=== PATIENT | female | born 1950 | race Caucasian/White ===

== ENCOUNTER 2016-07-03 11:06 | Inpatient (IN) | payer MEDICARE ==
[2016-07-03 12:21] LABS: BASOPHIL 0.5 % (0-2); EOSINOPHIL 2.2 % (0-7); HCT 36.1 % (37.0-47.0); HGB 10.8 g/dl (12.5-16.0); LYMPHOCYTE 19.1 % (15-48); MCH 26.7 pg (25.0-31.0); MCHC 29.9 g/dL (32.0-36.0); MCV 89.1 fL (78.0-100.0); MPV 9.7 fL (6.0-9.5); PLT 297 K/uL (150-400); RBC 4.05 M/uL (4.20-5.40); RDW 15.9 % (11.5-14.0); WBC 9.3 K/uL (4.0-10.5)
[2016-07-03 12:22] LABS: ALBUMIN 3.8 g/dL (3.4-4.8); BILIRUBIN - TOTAL 0.8 mg/dL (0.1-1.0); CREATININE 1.6 mg/dL (0.5-1.0); NEUTROPHIL 70.2 % (41-80); POTASSIUM 5.2 mmol/L (3.5-5.1); TOTAL PROTEIN 7.8 g/dL (6.4-8.3)
[2016-07-03 12:24] LABS: INR 1.68 (0.9-1.2); PRO-BNP 4453 pg/mL (0-125); PROTHROMBIN TIME 19.3 SECONDS (11.7-14.0); PTT 28.9 SECONDS (23.2-31.4); TROPONIN T < 0.010 ng/mL
[2016-07-03 14:12] LABS: BILIRUBIN NEGATIVE (NEGATIVE); BLOOD 1+ Ery/uL (NEGATIVE); CLARITY CLEAR (CLEAR); COLOR YELLOW (YELLOW); GLUCOSE (U) NORMAL (NORMAL); KETONE (U) NEGATIVE (NEGATIVE); LEUKOCYTES NEGATIVE Leu/uL (NEGATIVE); NITRITE POSITIVE (NEGATIVE); PROTEIN 1+ mg/dL (NEGATIVE); SPECIFIC GRAVITY 1.025 (1.001-1.030); pH 5.5 (5.0-9.0)
[2016-07-04 04:04] LABS: HCT 33.3 % (37.0-47.0); HGB 9.9 g/dl (12.5-16.0); MCH 26.4 pg (25.0-31.0); MCHC 29.7 g/dL (32.0-36.0); MCV 88.8 fL (78.0-100.0); RBC 3.75 M/uL (4.20-5.40); RDW 15.8 % (11.5-14.0); WBC 7.9 K/uL (4.0-10.5)
[2016-07-04 04:27] LABS: ALBUMIN 3.3 g/dL (3.4-4.8); BILIRUBIN - DIRECT 0.3 mg/dL (0.0-0.2); BILIRUBIN - TOTAL 0.8 mg/dL (0.1-1.0); CREATININE 1.4 mg/dL (0.5-1.0); GLOBULIN (CALCULATION) 2.9 g/dL (2.2-4.2); POTASSIUM 4.7 mmol/L (3.5-5.1); TOTAL PROTEIN 6.2 g/dL (6.4-8.3)
--- NOTE | 2016-07-04 14:15 | NUR ---
In to round on patient. Patient states she "wants to go home". She was advised, diagnostic testing was still being completed. She stated she didn't "care, I just want to go home". She was advised that it would be in her best interest [facility] to stay for results of testing and continued treatment. Risk of leaving without recieving full treatment could be life threatening and/or possible re admission. Patient stated "I just want to go home". Dr. Wood, notified of patients desires. Stated he would speak with patient.
--- NOTE | 2016-07-04 16:30 | NUR ---
DR. MCGRAW IN TO ASSESS PT, PT REQUESTING TO GO HOME. DR. MCGRAW STATED O.K. FOR D/C FAR NEPHROLOGY. DR. Wood PAGED & NOTIFIED OF PT'S REQUEST. 1700 DR. Wood AND MYSELF IN TO SPEAK WITH PATIENT. DR. Wood REQUESTED PATIENT STAY UNTIL AM;PT STATED SHE WANTED TO GO HOME. DR. Wood STATED IF ABLE TO GO HOME WITH OXYGEN THEN WOULD D/C HOME TONIGHT. PT STATED SHE HAD USED "[facility]" IN PAST FOR OXYGEN THERAPY. 1710 [facility] CALLED & ASKED IF OXYGEN THERAPY COULD BE SET UP TONIGHT. REPORTED THAT THEY WOULD NEED FACESHEET;ORDER;PROGRESS NOTE & DOCUMENTATION OF NEED FAXED. [employer] FAXED REQUESTED. 1745 [facility] CALLED TO VERIFY OXYGEN WOULD BE DELIVERED TONIGHT. 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 1747 [facility] CALLED & VERIFIED OXYGEN WOULD BE SET UP TONIGHT;STATED SHE WAS TEXTING THE TECH TO DELIVERY PORTABLE OXYGEN AT [facility] FOR TRANSPORT HOME.
--- NOTE | 2016-07-04 17:50 | NUR ---
[facility] D/C'D W/O DIFFICULTY;TOLERATED WELL. IV SITE D/C'D PRESSURE DRESSING APPLIED;TOLERATED WELL.
--- NOTE | 2016-07-04 18:00 | NUR ---
PT ASKED IF SHE HAD VOIDED SINCE REMOVAL OF W[facility] CATHER;PT STATED SHE "DID".
--- NOTE | 2016-07-04 18:17 | NUR ---
DISCHARGE & RX INSTRUCTIONS GIVEN;D/C PENDING [facility] SET UP MECHANIC BRINGING PORTABLE OXYGEN.
--- NOTE | 2016-07-04 18:45 | NUR ---
PT CAME TO DESK;STATED THEY WERE NOT GOING TO WAIT ANY LONGER FOR THE OXYGEN TO BE DELIVERED;REQUESTED THAT [facility] MEET THEM AT HOME. AT THE SAME TIME [facility] CALLED & REQUESTED INFORMATION BE RE FAXED. THEY WERE NOTIFIED OF PATIENT'S REQUEST & STATED THAT WOULD NOT BE A PROBLEM. PT WAS NOTIFIED;THEY LEFT THE FACILITY.
== END 2016-07-04 18:55 | disposition home or self-care (01) | DRG 291 ==
LOC: FER 11:06 → FTCU 14:00
PROVIDERS: Emergency Medicine; ADMIT Internal Medicine
DX: I13.0 Hypertensive heart and chronic kidney disease with heart failure and stage 1 through stage 4 chronic kidney disease, or unspecified chronic kidney disease (principal); I50.33 Acute on chronic diastolic (congestive) heart failure; I27.2 Other secondary pulmonary hypertension; N17.9 Acute kidney failure, unspecified; Z68.45 Body mass index [BMI] 70 or greater, adult; E66.01 Morbid (severe) obesity due to excess calories; N18.3 Chronic kidney disease, stage 3 (moderate); C88.0 Waldenstrom macroglobulinemia; K75.81 Nonalcoholic steatohepatitis (NASH); E11.9 Type 2 diabetes mellitus without complications; I48.2 Chronic atrial fibrillation; E78.5 Hyperlipidemia, unspecified; D50.9 Iron deficiency anemia, unspecified; M19.90 Unspecified osteoarthritis, unspecified site; F32.9 Major depressive disorder, single episode, unspecified; D63.1 Anemia in chronic kidney disease; Z87.891 Personal history of nicotine dependence; Z79.01 Long term (current) use of anticoagulants; Z88.8 Allergy status to other drugs, medicaments and biological substances; Z80.0 Family history of malignant neoplasm of digestive organs; Z82.5 Family history of asthma and other chronic lower respiratory diseases; Z98.84 Bariatric surgery status
CPT/HCPCS: 36415; 36600; 71010; 76770; 80048; 80053; 80076; 81003; 82550; 82553; 82803; 82962; 83880; 84484; 85025; 85610; 85730; 87040; 87076; 87088; 87186; 87804; 87899; 93005; 93970; 94640; 94660; 97163; 97167; 97530; 97530-GP; C9113; J1644; J1940

== ENCOUNTER → 2020-09-24 | Day surgery (SDC) | payer MEDICARE, OTHER ==
[~2020-09-24] VITALS: Ht 162.6 cm; Wt 172.4 kg
[~2020-09-24] MED LIST: ALLEGRA ALLERG180 MG PO; ARANESP150 MCG/0. SC; ASPIRIN EC81 M1 PO; BREO ELLIPTA 11 EACH INH; BUMEX1 MG PO; COUMADIN4 MG PO; COUMADIN7.5 MG PO; DRISDOL50000 UNIT PO; FOLIC ACID1 MG PO; HYDROCODON-ACE1 EAC2 PO; IMDUR 30MG TABL30 MG PO; LASIX40 MG PO; LEXAPRO20 MG PO; LIPITOR40 MG PO; LOVAZA1 GM PO; NEURONTIN300 MG PO; NORVASC 10MG TA10 MG PO; OXYGEN INH; PRILOSEC20 MG PO; TOPROL XL 25MG25 MG PO; VASERETIC 10-21 EACH PO; VENTOLIN HFA IN18 GM INH
[2020-09-24 09:22] LABS: INR 2.25 (0.9-1.2); PROTHROMBIN TIME 23.7 SECONDS (11.4-13.6)
[2020-09-24 09:30] LABS: ALBUMIN 3.5 g/dL (3.4-5.0); BILIRUBIN - TOTAL 0.7 mg/dL (0.2-1.0); CREATININE 1.31 mg/dL (0.51-0.95); GLOBULIN (CALCULATION) 4.3 g/dL; TOTAL PROTEIN 7.8 g/dL (6.4-8.2)
== END | disposition home or self-care (01) ==
LOC: FAS 07:29
PROVIDERS: Surgery
DX: K63.5 Polyp of colon (principal); I13.0 Hypertensive heart and chronic kidney disease with heart failure and stage 1 through stage 4 chronic kidney disease, or unspecified chronic kidney disease; E11.22 Type 2 diabetes mellitus with diabetic chronic kidney disease; N18.30 Chronic kidney disease, stage 3 unspecified; I50.9 Heart failure, unspecified; F41.9 Anxiety disorder, unspecified; M19.90 Unspecified osteoarthritis, unspecified site; J44.9 Chronic obstructive pulmonary disease, unspecified; G89.4 Chronic pain syndrome; I48.91 Unspecified atrial fibrillation; F32.9 Major depressive disorder, single episode, unspecified; K21.9 Gastro-esophageal reflux disease without esophagitis; E78.1 Pure hyperglyceridemia; E03.9 Hypothyroidism, unspecified; E66.01 Morbid (severe) obesity due to excess calories; M81.0 Age-related osteoporosis without current pathological fracture; I27.20 Pulmonary hypertension, unspecified; G47.30 Sleep apnea, unspecified; Z68.44 Body mass index [BMI] 60.0-69.9, adult; Z99.81 Dependence on supplemental oxygen; Z99.3 Dependence on wheelchair; Z98.84 Bariatric surgery status; Z87.891 Personal history of nicotine dependence; Z79.01 Long term (current) use of anticoagulants; Z79.82 Long term (current) use of aspirin; Z79.84 Long term (current) use of oral hypoglycemic drugs; Z79.899 Other long term (current) drug therapy
CPT/HCPCS: 36415; 80053; 85610; J1610; J2250; J2704; J7120; P9017

== ENCOUNTER 2021-08-18 13:18 | Inpatient (IN) | payer MEDICARE, OTHER ==
[~2021-08-18] VITALS: Ht 160 cm; Wt 147.4 kg
[~2021-08-18 13:18] MED LIST changes: +AMARYL2 MG PO; +BUMETANIDE2 MG PO; +DUONEB 2.5-0.5M1 AMP NEB; +SYNTHROID75 MCG PO
[2021-08-18 15:11] LABS: BASOPHIL 0.2 % (0-2); EOSINOPHIL 2.7 % (0-7); LYMPHOCYTE 4.3 % (15-48); MCH 31.7 pg (25.0-31.0); MCHC 30.3 g/dL (32.0-36.0); MCV 104.8 fL (78.0-100.0); MONOCYTE 7.6 % (0-12); MPV 10.5 fL (6.0-9.5); NRBC 0; PLT 117 K/uL (150-400); RBC 3.15 M/uL (4.20-5.40); RDW 15.2 % (11.5-14.0); WBC 5.1 K/uL (4.0-10.5)
[2021-08-18 15:15] LABS: INR 1.07 (0.9-1.2); PROTHROMBIN TIME 13.3 SECONDS (11.8-13.4)
[2021-08-18 15:16] LABS: PTT 28.9 SECONDS (24.4-34.7)
[2021-08-18 15:25] LABS: ALBUMIN 3.2 g/dL (3.4-5.0); BILIRUBIN - TOTAL 0.5 mg/dL (0.2-1.0); BUN/CREAT RATIO (CALC) 34.1 RATIO; CREATININE 1.38 mg/dL (0.51-0.95); GLOBULIN (CALCULATION) 3.6 g/dL; POTASSIUM 4.8 mmol/L (3.5-5.1); TOTAL PROTEIN 6.8 g/dL (6.4-8.2)
[2021-08-18 16:16] LABS: BILIRUBIN NEGATIVE (NEGATIVE); BLOOD NEGATIVE Ery/uL (NEGATIVE); CLARITY CLEAR (CLEAR); COLOR YELLOW (YELLOW); GLUCOSE (U) NORMAL (NORMAL); LEUKOCYTES NEGATIVE Leu/uL (NEGATIVE); NITRITE NEGATIVE (NEGATIVE); PROTEIN NEGATIVE (NEGATIVE); SPECIFIC GRAVITY 1.025 (1.001-1.030); UROBILINOGEN 0.2 mg/dL (0.2-1.0); pH 5.5 (5.0-9.0)
[2021-08-18 16:44] LABS: CORONAVIRUS 2019 SARS-COV-2 NEGATIVE (NEGATIVE); INFLUENZA A NAA NEGATIVE (NEGATIVE)
[2021-08-18 19:05] LABS: BUN/CREAT RATIO (CALC) 33.8 RATIO; CREATININE 1.45 mg/dL (0.51-0.95); POTASSIUM 4.8 mmol/L (3.5-5.1)
[2021-08-18] MEDS ORDERED: SALINE NASAL SP88 M1 (22:16)
[2021-08-18] MEDS ORDERED: MIRALAX 238GM238 GM PO (22:18)
[2021-08-18] MEDS ORDERED: LIDOCAINE 4%50 ML TOP (22:20)
[2021-08-18] MEDS ORDERED: ISOSORBIDE MONO60 MG PO (22:24)
[2021-08-18] MEDS ORDERED: NORVASC5 MG PO (22:25)
[2021-08-18] MEDS ORDERED: COMPAZINE10 MG PO (22:26)
[2021-08-19 04:03] LABS: BASOPHIL 0.3 % (0-2); EOSINOPHIL 2.5 % (0-7); HCT 32.4 % (37.0-47.0); HGB 9.5 g/dl (12.5-16.0); LYMPHOCYTE 6.8 % (15-48); MCH 30.8 pg (25.0-31.0); MCHC 29.3 g/dL (32.0-36.0); MCV 105.2 fL (78.0-100.0); MONOCYTE 9.1 % (0-12); NRBC 0; PLT 100 K/uL (150-400); RBC 3.08 M/uL (4.20-5.40)
[2021-08-19 04:29] LABS: BUN/CREAT RATIO (CALC) 34.1 RATIO; CREATININE 1.32 mg/dL (0.51-0.95); MAGNESIUM 2.1 mg/dL (1.8-2.4); POTASSIUM 4.5 mmol/L (3.5-5.1)
--- NOTE | 2021-08-19 11:22 | NUR ---
MET WITH PT, SPOUSE AND DAUGHTER. PT. DOES NOT WISH TO RETURN TO [facility]. SHE WOULD LIKE TO GO HOME. SHE HAS A HOSPITAL BED, WC, AND 06/28. PT. WAS CURRENT WITH [facility] PRIOR TO ADMISSION TO [facility]. PT. WOULD LIKE TO HAVE [facility] HER HH. PT IS ALSO CURRENT WITH THE [facility] FOR CHEMO. SHE STATES THAT SHE HAS 3 CHEMO TREATMENTS LEFT.
[2021-08-20 04:13] LABS: BUN/CREAT RATIO (CALC) 36.1 RATIO; CREATININE 1.55 mg/dL (0.51-0.95); MAGNESIUM 1.9 mg/dL (1.8-2.4); POTASSIUM 4.8 mmol/L (3.5-5.1)
[2021-08-21 06:52] LABS: BUN/CREAT RATIO (CALC) 39.3 RATIO; CREATININE 1.73 mg/dL (0.51-0.95); MAGNESIUM 1.7 mg/dL (1.8-2.4); POTASSIUM 4.3 mmol/L (3.5-5.1)
[2021-08-21] MEDS ORDERED: BUMETANIDE1 MG PO (10:54)
[2021-08-21] MEDS ORDERED: BUMETANIDE2 MG PO (11:06)
== END 2021-08-21 15:20 | disposition home health service (06) | DRG 291 ==
LOC: FER 13:18 → FMS 18:13 → FTCU 08-19 11:56
PROVIDERS: Emergency Medicine; Internal Medicine Cardiovascular Disease; Nurse Practitioner Acute Care; ADMIT Allergy & Immunology Allergy
DX: I13.0 Hypertensive heart and chronic kidney disease with heart failure and stage 1 through stage 4 chronic kidney disease, or unspecified chronic kidney disease (principal); I50.33 Acute on chronic diastolic (congestive) heart failure; J96.10 Chronic respiratory failure, unspecified whether with hypoxia or hypercapnia; J44.1 Chronic obstructive pulmonary disease with (acute) exacerbation; J96.11 Chronic respiratory failure with hypoxia; I48.20 Chronic atrial fibrillation, unspecified; E87.0 Hyperosmolality and hypernatremia; J96.12 Chronic respiratory failure with hypercapnia; E66.2 Morbid (severe) obesity with alveolar hypoventilation; Z68.43 Body mass index [BMI] 50.0-59.9, adult; Z20.822 Contact with and (suspected) exposure to COVID-19; E11.22 Type 2 diabetes mellitus with diabetic chronic kidney disease; N18.30 Chronic kidney disease, stage 3 unspecified; E11.649 Type 2 diabetes mellitus with hypoglycemia without coma; E03.9 Hypothyroidism, unspecified; F41.9 Anxiety disorder, unspecified; F32.A Depression, unspecified; C88.0 Waldenstrom macroglobulinemia; L30.4 Erythema intertrigo; B37.2 Candidiasis of skin and nail; B35.6 Tinea cruris; E78.5 Hyperlipidemia, unspecified; D50.9 Iron deficiency anemia, unspecified; I27.20 Pulmonary hypertension, unspecified; M19.90 Unspecified osteoarthritis, unspecified site; Z98.84 Bariatric surgery status; Z87.01 Personal history of pneumonia (recurrent); Z99.81 Dependence on supplemental oxygen; Z87.891 Personal history of nicotine dependence; Z79.84 Long term (current) use of oral hypoglycemic drugs; Z79.899 Other long term (current) drug therapy; Z92.21 Personal history of antineoplastic chemotherapy
CPT/HCPCS: 36415; 71045; 80048; 80053; 81003; 82962; 83735; 83880; 84145; 84484; 85025; 85379; 85610; 85730; 86140; 93005; 94640; 94760; 94762; J1650; J2930; U0002